=== PATIENT | male | born 1995 | race Caucasian/White ===

== ENCOUNTER 2022-01-02 22:59 | Emergency (ER) | payer SELFPAY ==
[~2022-01-02 22:59] MED LIST: BACTRIM DS TAB1 EACH PO; BACTROBAN OINT22 GM EXT; BENTYL 20MG TAB20 MG PO; IBUPROFEN600 MG PO; ZOFRAN ODT 4 MG4 MG PO
== END 2022-01-03 00:30 | disposition home or self-care (01) ==
LOC: ER1 22:59
DX: B34.9 Viral infection, unspecified (principal); Z20.822 Contact with and (suspected) exposure to COVID-19
CPT/HCPCS: 0240U; 71045; 87081; 87880; 99283